=== PATIENT | female | born 1975 | race Caucasian/White ===

== ENCOUNTER 2022-10-13 17:10 | Emergency (ER) | payer OTHER, SELFPAY ==
[2022-10-13 17:20] VITALS: BP 148/100; PULSE 74; RESP 18; TEMP 36.6; O2SAT 100
--- NOTE | 2022-10-13 17:21 | ED.GENADULT ---
HPI - General Adult General Chief complaint: Urogenital-Female Stated complaint: Issues from trip Source: patient and RN notes reviewed History of Present Illness HPI narrative: 47 yo F presents to urgent care with complaints of urinary urgency, frequency, and burning. Pt reports bilateral lower back pain. Pt states she has had her symptoms since 10/02/22 and was in [place], [place] at the time. Pt was seen at a clinic down there where she was tested for STIs and UTI. Dx with BV and UTI, prescribed Flagyl and Macrobid. Pt states the pharmacy was out of Macrobid but she took her Flagyl as directed. Pt states she feels like the UTI has just gotten worse. Denies any fevers, vomiting, or abdominal pain. Pt denies any vaginal discharge or any concern for STIs. Related Data Home Medications Medication Instructions Recorded Confirmed gabapentin 400 mg capsule mg 10/13/22 methimazole 5 mg tablet mg 10/13/22 metoprolol tartrate 25 mg tablet mg 10/13/22 Allergies Allergy/AdvReac Type Severity Reaction Status Date / Time No Known Allergies Allergy Verified 10/13/22 17:20 Review of Systems Review of Systems: CONSTITUTIONAL: Denies fever, chills, or sweats. EYES: Denies visual changes, redness, or discharge. ENT: Denies otalgia and sore throat CARDIOVASCULAR: Denies chest pain, palpitations, or edema. RESPIRATORY: Denies cough or dyspnea. GASTROINTESTINAL: Denies abdominal pain, nausea, vomiting, or diarrhea. GENITOURINARY: Reports dysuria SKIN: Denies rash or itching. MUSCULOSKELETAL: Reports bilateral lower back pain NEUROLOGIC: Denies headache, numbness, or weakness. PMFSH Comments At the time of my signature, I reviewed and agree with the nursing past medical, surgical, social, and family history. There is no relevant family history pertinent to the patient complaint. Exam Narrative: GENERAL: This is a well-nourished, well-developed patient, in no apparent distress. HEAD: normocephalic, atraumatic. EYES: PERRL. Sclera clear/white. Vision is grossly intact. EARS: External ears normal, auditory canals clear and without drainage, TMs normal without perforation. Hearing grossly intact. NOSE: External nose normal with no obvious nasal discharge, nares without redness, no rhinorrhea. THROAT: Mucous membranes moist, posterior pharynx clear. NECK: Neck supple, non-tender without lymphadenopathy, masses or thyromegaly. CARDIOVASCULAR: Regular rate and rhythm without murmurs, gallops, or rubs. RESPIRATORY: Clear to auscultation. Breath sounds equal bilaterally. No wheezes, rales, or rhonchi. GASTROINTESTINAL: Abdomen soft, non-tender, nondistended. Bowel sounds are active. No hepato-splenomegaly, or palpable masses. No guarding. SKIN: large area of ecchymosis to left upper arm-pt states she left a bad relationship in [place] when asked about this. NEURO: awake, alert, and oriented to person, place and time. There were no obvious focal neurologic abnormalities. EXTREMITIES: No clubbing, cyanosis, or edema. No joint tenderness, effusion, or edema noted. BACK: Nontender without deformity or crepitance. No flank tenderness. Course Course Level of Care: Express Care Visit Vital Signs Vital signs: Vital Signs Temperature 97.9 F 10/13/22 17:20 Pulse Rate 74 10/13/22 17:20 Respiratory Rate 18 10/13/22 17:20 Blood Pressure 148/100 H 10/13/22 17:20 Pulse Oximetry 100 10/13/22 17:20 Oxygen Delivery Room Air 10/13/22 17:20 Temperature 97.9 F 10/13/22 17:20 Pulse Rate 74 10/13/22 17:20 Respiratory Rate 18 10/13/22 17:20 Blood Pressure 148/100 H 10/13/22 17:20 Pulse Oximetry 100 10/13/22 17:20 Oxygen Delivery Room Air 10/13/22 17:20 reviewed Medical Decision Making MDM Narrative Medical decision making narrative: Take the antibiotics as directed. Follow up with a tableau administrator. Differential Diagnosis Differential Diagnosis: UTI, nephrolithiasis, pyelonephritis Vital Signs Vital Signs:
== END 2022-10-13 17:49 | disposition home or self-care (01) ==
PROVIDERS: Emergency Provider Nurse Practitioner Family; PCP Emergency Medicine
DX: N39.0 Urinary tract infection, site not specified (principal)
CPT/HCPCS: 81003; 87086; 99213; G0463

== ENCOUNTER 2024-07-19 08:10 | Emergency (ER) | payer OTHER, SELFPAY ==
[2024-07-19] VITALS (17 sets, daily range): BP systolic 107–146; BP diastolic 70–102; PULSE 61–92; RESP 12–19; TEMP 36.7; O2SAT 96–100
--- NOTE | ~2024-07-19 | XR_ITS ---
EXAMINATION: XR chest 2V DATE: 07/19/2024 08:41 INDICATION: Coughing. TECHNIQUE: PA and lateral views of the chest were obtained. COMPARISON: None FINDINGS: Small calcified right apical nodule consistent with old granulomatous disease. No focal airspace opac ities, pulmonary edema, pleural effusion or pneumothorax. The cardiomediastinal silhouette is normal. Moderate thoracic spondylosis. IMPRESSION: 1. No acute cardiopulmonary disease. Reviewed, dictated and finalized at location [facility]
--- NOTE | 2024-07-19 08:30 | ED.URI ---
HPI - URI/Sore Throat General Chief Complaint: Upper Respiratory Infection Stated Complaint: bronchitis Time Seen by Provider: 07/19/24 08:29 Source: patient History of Present Illness HPI Narrative: 49 years old white female drove herself to the emergency room complaining of runny nose, postnasal discharge, sore throat, headache, coughing, body aches, hoarseness of voice started 3 days ago. 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 History of seasonal asthma, ran out of nebulizer treatment. Currently patient denying any chest pain or shortness of breath for fever or chills. Related Data Home Medications ?Medication ?Instructions ?Recorded ?Confirmed ?Last Taken ?Type gabapentin 400 mg capsule mg 10/13/22 Unknown History methimazole 5 mg tablet mg 10/13/22 Unknown History metoprolol tartrate 25 mg tablet mg 10/13/22 Unknown History Allergies Allergy/AdvReac Type Severity Reaction Status Date / Time No Known Allergies Allergy Verified 07/19/24 08:22 Review of Systems Review of Systems: All systems reviewed & are unremarkable except as noted in HPI and below Exam Narrative: General appearance: Well-developed, well-nourished, raspy voice Skin: Normal color Head: Normocephalic, nontraumatic Eyes: Clear conjunctiva ENT: Oropharynx normal, ears normal, nose normal Neck: Supple, nontender Chest and respiratory: Airway patent, no respiratory distress, no accessory muscle use, few expiratory wheezing Heart: Regular rate/rhythm Abdomen: Soft, nontender, no organomegaly, quiet bowel sounds Neurologic: Alert and oriented ?3, Course Vital Signs Vital signs: Vital Signs Temperature 36.7 C 07/19/24 08:16 Pulse Rate 92 07/19/24 08:16 Respiratory Rate 19 07/19/24 08:16 Blood Pressure 146/102 H 07/19/24 08:16 Pulse Oximetry 100 07/19/24 08:16 Oxygen Delivery Room Air 07/19/24 08:16 Temperature 36.7 C 07/19/24 08:16 Pulse Rate 92 07/19/24 08:16 Respiratory Rate 19 07/19/24 08:16 Blood Pressure 146/102 H 07/19/24 08:16 Pulse Oximetry 100 07/19/24 08:16 Oxygen Delivery Room Air 07/19/24 08:16 MDM - URI/Sore Throat MDM Narrative Medical decision making narrative: Patient presents with upper respiratory viral infection symptoms Vital signs are stable Physical examination showed few expiratory wheezing Differential diagnosis upper respiratory viral infection, bronchospasm Patient tested negative for COVID flu and RSV today Chest x-ray showed no pneumonia Discharged on Flonase, albuterol inhaler the pt was discharged to home.the pt,s condition upon discharge was fair,education was provided to the pt in reference to the final impression,discharge study results,treatment,prognosis and need for follow up . Differential Diagnosis Differential diagnosis: Likely other (As above) Medical Records Attestation: I reviewed the patient's medical records. Lab Data Attestation: I reviewed the patient's lab results. Imaging Data Radiologist's impression: Impressions Chest X-Ray 07/19/24 08:45 IMPRESSION: 1. No acute cardiopulmonary disease. Critical Care Time Critical Care Time Critical Care Time: No Discharge Plan Discharge Clinical Impression: Upper respiratory infection, Acute bronchospasm Patient Disposition: Home, Self-Care Condition: Stable Instructions: Viral Syndrome (ED), Cold Symptoms (ED), Bronchospasm (ED) Patient Language: [place] Island[place] Prescriptions: New fluticasone propionate 50 mcg/actuation spray,suspension 2 spray intranasal DAILY Qty: 16 0RF Rx Instructions: administer into each nostril albuterol sulfate 90 mcg/actuation aerosol powdr breath activated 2 inh inhalation Q4H PRN (Reason: shortness of breath or wheezing) 7 Days Qty: 1 0RF No Action gabapentin 400 mg capsule methimazole 5 mg tablet metoprolol tartrate 25 mg tablet nitrofurantoin monohyd/m-cryst [Macrobid] 100 mg capsule 100 mg PO Q12H 5 Days Qty: 10 0RF Rx Instructions: must administer with a meal/food Follow-up/Referrals: Hernesto Oswald MD [Primary Care Provider] - Stand Alone Forms: Work/School Release IP
[2024-07-19 10:27] LABS: Influenza A QL RT-PCR Negative (Negative); Influenza B QL RT-PCR Negative (Negative); RSV RNA, RT-PCR Negative (Negative); SARS-CoV-2 RNA PCR Negative (Negative)
== END 2024-07-19 10:52 | disposition home or self-care (01) ==
PROVIDERS: Emergency Provider Emergency Medicine; PCP Emergency Medicine
DX: J06.9 Acute upper respiratory infection, unspecified (principal); J45.909 Unspecified asthma, uncomplicated; Z20.822 Contact with and (suspected) exposure to COVID-19
CPT/HCPCS: 71046; 87637; 99283